=== PATIENT | female | born 1980 | race Caucasian/White ===

== ENCOUNTER → 2017-11-02 08:09 | Outpatient (CLI) | payer OTHER, SELFPAY ==
[2017-11-02 09:52] LABS: Free Thyroxine Index 2.8 ug/dL (5.93-13.13); T4 (Thyroxine) 8.9 ug/dl (4.7-13.3); Thyroid Stimulating Hormone 1.96 uIU/ml (0.358-3.740); Triiodothryronine (T3) Uptake 31 % (31-39)
[2017-11-03 18:41] LABS: Triiodothyronine (T3) Free 3.5 pg/mL (2.0-4.4)
[2017-11-08 21:09] LABS: Testosterone, Total, LC/MS 27.2 ng/dL (10.0-55.0)
== END ==
PROVIDERS: Visit Provider Nurse Practitioner Obstetrics & Gynecology
DX: N93.9 Abnormal uterine and vaginal bleeding, unspecified (principal); R53.82 Chronic fatigue, unspecified
CPT/HCPCS: 84402; 84403; 84436; 84443; 84479; 84481

== ENCOUNTER → 2017-11-05 12:53 | Outpatient (CLI) | payer OTHER, SELFPAY ==
--- NOTE | 2017-11-05 13:06 | US_ITS ---
US transvaginal HISTORY: ITS.REASON: HEAVY BLEEDING, heavy cycles, preablation ORDERING PHYSICIAN: Layo Cherry MD PATIENT AGE: 37 years Comparison: None FINDINGS: The uterus is 9 x 3.4 x 5.2 cm with a combined thickness of 8 mm. scar noted anteriorly. Nabothian cyst present at 5 mm. Left ovary is 2 x 2.5 cm. Blood flow present. Right ovary 3 x 2 cm containing a 1 cm cyst. Blood flow is present. No cul-de-sac fluid evident. IMPRESSION: As above, uterus is slightly bulky with endometrial thickness upper normal. 1 cm right ovarian cyst
== END ==
PROVIDERS: Family Provider Emergency Medicine; PCP Nurse Practitioner Family; Visit Provider Nurse Practitioner Obstetrics & Gynecology
DX: N93.9 Abnormal uterine and vaginal bleeding, unspecified (principal)
CPT/HCPCS: 76830

== ENCOUNTER → 2019-04-14 13:29 | Outpatient (CLI) | payer OTHER, SELFPAY ==
[2019-04-14 15:20] LABS: T4 (Thyroxine) 9.2 ug/dl (4.7-13.3); Thyroid Stimulating Hormone 1.89 uIU/ml (0.358-3.740)
[2019-04-16 16:24] LABS: Thyroid Peroxidase Antibodies 21 IU/mL (0-34)
[2019-04-18 08:17] LABS: Thyroid Stimulating Immunoglob <0.10 IU/L (0.00-0.55)
== END ==
PROVIDERS: Visit Provider Nurse Practitioner Family
DX: R41.3 Other amnesia (principal)
CPT/HCPCS: 84436; 84443; 84445; 86376

== ENCOUNTER → 2019-05-29 08:15 | Outpatient (CLI) | payer OTHER, SELFPAY ==
--- NOTE | 2019-05-29 08:18 | XR_ITS ---
PROCEDURE: XR ELBOW RT MIN 3V CLINICAL INDICATION: pain Elbow pain COMPARISON: No exams were available for comparison FINDINGS: No fracture or dislocation. No lytic or blastic change. There is normal mineralization. The joint spaces are well-preserved. No significant degenerative/arthritic changes. No erosive changes evident. Other findings:None. IMPRESSION: Negative elbow Dictated by: Hugo Bliss MD 05/29/2019 08:47 Electronically signed by Hugo Bliss MD in [place] 05/29/2019 08:47
== END ==
PROVIDERS: PCP Emergency Medicine; Visit Provider Emergency Medicine
DX: M25.521 Pain in right elbow (principal)
CPT/HCPCS: 73080

== ENCOUNTER 2019-09-01 15:00 | Outpatient (RCR) | payer OTHER, SELFPAY ==
--- NOTE | 2019-08-08 08:49 | HMH.OTOPEV ---
OT Inpatient Evaluation Rehab OT Outpatient Eval Start: 08/08/19 08:36 Freq: Status: Active Protocol: Document 08/08/19 08:36 RMMASOODHALL (Rec: 08/08/19 08:49 [id number] Electronically Signed By Roni Sullivan OT 08/08/19 08:36 Outpatient Therapy Subjective History Subjective History Pt is a 38 year old female who reports to therapy for initial evaluation to right elbow. Pt began having pain on the lateral epicondyle ~3 months ago. Pt does not recall a specific injury causing the pain to begin. Pt has seen ortho and received a steroid injection ~1 week ago . Since injection pt reports her pain is significantly improved with minimal soreness . Pt's AROM is within normal limits, strength is slightly declined. Pt will continue to be seen in order to increase functional use of right UE. Chief Complaint Pain,Weakness,Decreased Grants Analyst Strength Symptom Type Ache,Throb,Sharp,Dull,Burning Symptoms Relieved By Rest/Positioning Symptoms Aggravated By Physical Activity,Lifting Prior Functional Limitations None Current Functional Limitations Reaching,Lifting,Housework, Desk Work/Reading,Sleeping, Recreation Activity Symptom Description Intermittent,Activity Dependent Level of pain today (0-10) 0 Pain scale - at its best (0-10) 0 Pain scale - at its worst (0-10) 4 Shoulder/Elbow Eval Shoulder Objective Measurements Elbow Objective Measurements Elbow ROM Right full ROM elbow exam standard right decreased ROM elbow exam standard right pain with active ROM elbow exam standard right Elbow Extension Active Range of Motion ( 0 degrees degrees) Elbow Flexion Active Range of Motion ( 130 degrees degrees) Elbow Pronation of Forearm Range of 90 degrees Motion (degrees) Elbow Supination of Forearm Range of 90 degrees Motion (degrees) Elbow MMT Elbow Flexion Strength Grade 3+ Fair+ Elbow Extension Strength Grade 3+ Fair+ OT Outpatient Assessment Impairments Problems/Impairments Palpation Tenderness,Impaired Range of Motion,Impaired Strength,Impaired Endurance,
== END 2019-09-01 15:05 | disposition home or self-care (01) ==
LOC: OT 15:00
PROVIDERS: PCP Nurse Practitioner Family; Visit Provider Orthopaedic Surgery
DX: M77.11 Lateral epicondylitis, right elbow (principal)
CPT/HCPCS: 97014; 97110; 97140; 97166; G0283

== ENCOUNTER → 2019-11-20 16:42 | Outpatient (CLI) | payer OTHER, SELFPAY ==
[2019-11-20 17:42] LABS: Coronavirus 19 IgG Antibody Negative (Negative); Coronavirus 19 IgM Antibody Negative (Negative)
== END ==
PROVIDERS: Visit Provider Emergency Medicine
DX: Z03.818 Encounter for observation for suspected exposure to other biological agents ruled out (principal)
CPT/HCPCS: 86328

== ENCOUNTER → 2019-11-28 09:49 | Outpatient (CLI) | payer OTHER, SELFPAY ==
--- NOTE | 2019-11-28 09:49 | US_ITS ---
PROCEDURE: US ABDOMEN LIMITED CLINICAL INDICATION: Abdominal Pain Right-sided pain COMPARISON: No exams were available for comparison FINDINGS: PANCREAS: Pancreas is not well delineated due to overlying bowel gas. CT or MRI without and with contrast with pancreatic protocol may provide further evaluation if clinically desired. LIVER: No focal liver lesions demonstrated. Homogeneous echogenicity. No intrahepatic biliary ductal dilatation evident. There is appropriate direction of blood flow within a non dilated portal vein RIGHT KIDNEY: Unremarkable. Normal size and echogenicity. No hydronephrosis GALLBLADDER: No gallstones, gallbladder wall thickening, pericholecystic fluid, or biliary dilatation. IMPRESSION: 1. Unremarkable gallbladder ultrasound 2. Pancreas is not well delineated due to overlying bowel gas. CT or MRI without and with contrast with pancreatic protocol may provide further evaluation if clinically desired. Dictated by: Hugo Bliss MD 11/28/2019 15:51 Electronically signed by Hugo Bliss MD in [place] 11/28/2019 15:51
== END ==
PROVIDERS: PCP Nurse Practitioner Family; Visit Provider Emergency Medicine
DX: R10.9 Unspecified abdominal pain (principal)
CPT/HCPCS: 76705

== ENCOUNTER → 2020-01-09 08:54 | Outpatient (CLI) | payer OTHER, SELFPAY ==
--- NOTE | 2020-01-09 08:55 | MM_ITS ---
PROCEDURE: MM DIG SCREENING MAMM BI W/CAD Digital Breast Tomosynthesis Included CLINICAL INDICATION: SCREENING There is a history of breast cancer patient's paternal cousin. COMPARISON: This is baseline screening exam TECHNIQUE: Standard CC and MLO images and 3D Tomosynthesis was obtained. R2 CAD reviewed. FINDINGS: Mild to moderate diffuse fibroglandular densities are seen in both breasts. There is a questionable asymmetric density with slightly irregular borders highlighted by CAD on the MLO view only upper-outer quadrant right breast. Recommend the patient return for spot compression views and ultrasound if this proves to be a true lesion. There are no suspicious microcalcifications. IMPRESSION: Fibrofatty parenchyma with possible asymmetric density right breast versus summation shadow BI-RAD Category: 0 Need Additional Imaging Evaluation FOLLOW-UP: IMM Immediate Follow-up Recommended (A letter has been sent to the patient regarding results of the study.) Dictated by: Dr. Rogelio Dunn MD 01/12/2020 11:[address] Rogelio Dunn MD in [place] 01/12/2020 11:21
== END ==
PROVIDERS: PCP Nurse Practitioner Family; Visit Provider Emergency Medicine
DX: Z12.31 Encounter for screening mammogram for malignant neoplasm of breast (principal)
CPT/HCPCS: 77063; 77067

== ENCOUNTER → 2020-01-30 14:00 | Outpatient (CLI) | payer OTHER, SELFPAY ==
--- NOTE | 2020-01-30 14:00 | MM_ITS ---
PROCEDURE: MM DIG MAMM DX UNILAT RT CAD Digital Breast Tomosynthesis Included CLINICAL INDICATION: abn mamm, baseline exam COMPARISON: MG MM DIG SCREENING MAMM BI W/CAD from 01/09/2020 TECHNIQUE: 90 degree lateral view fresh in MLO views were obtained. The questionable asymmetric density appears to press out on the additional views and there is no persistent suspicious lesions seen. FINDINGS: The questionable asymmetric density highlighted by CAD on the baseline exam appears to press out on the additional views with no persistent or suspicious lesions seen. IMPRESSION: Negative problem solving views and recommend the patient continue with yearly screening mammography BI-RAD Category: 1 Negative FOLLOW-UP: 1YR 1 Year Follow-up (A letter has been sent to the patient regarding results of the study.) Dictated by: Dr. Rogelio Dunn MD 02/03/2020 08:42 Dr. Rogelio Dunn MD in [place] 02/03/2020 08:42
--- NOTE | 2020-01-30 14:00 | US_ITS ---
PROCEDURE: US BREAST RT COMPLETE CLINICAL INDICATION: abn mamm, baseline screening COMPARISON: No exams were available for comparison FINDINGS: Mildly heterogenic echogenicity is seen consistent with moderate diffuse fibroglandular densities. There is a small hypoechoic lesion 9 o'clock position near the nipple measuring point by 0.5 x 0.3 cm probably representing a small cyst. There is a normal appearing node in the axilla. IMPRESSION: Probable small benign-appearing cyst, no suspicious ultrasound findings and recommended patient continue yearly screening mammography. Dictated by: Dr. Rogelio Dunn MD 02/03/2020 08:44 Dr. Rogelio Dunn MD in [place] 02/03/2020 08:44
== END ==
PROVIDERS: PCP Nurse Practitioner Family; Visit Provider Nurse Practitioner Family
DX: R92.8 Other abnormal and inconclusive findings on diagnostic imaging of breast (principal)
CPT/HCPCS: 76641; 77061; 77065; G0279

== ENCOUNTER → 2020-02-08 11:14 | Outpatient (CLI) | payer OTHER, SELFPAY | PROVIDERS: PCP Emergency Medicine; Visit Provider Emergency Medicine | DX: Z20.828 Contact with and (suspected) exposure to other viral communicable diseases (principal); U07.1 COVID-19; R50.9 Fever, unspecified | CPT/HCPCS: U0003 ==

== ENCOUNTER → 2020-02-17 14:11 | Outpatient (CLI) | payer OTHER, SELFPAY | PROVIDERS: PCP Nurse Practitioner Family; Visit Provider Internal Medicine Adolescent Medicine | DX: Z20.828 Contact with and (suspected) exposure to other viral communicable diseases (principal); U07.1 COVID-19 | CPT/HCPCS: U0003 ==

== ENCOUNTER → 2020-04-15 15:42 | Outpatient (CLI) | payer OTHER, SELFPAY ==
--- NOTE | 2020-04-15 15:42 | MR_ITS ---
PROCEDURE: MR ELBOW RT WO CON CLINICAL INDICATION: right elbow pain RIGHT LATERAL EPICONDYLE PAIN X10 MONTHS, NO INJURY, CONSTANT PAIN PREVIOUS XRAY 05-29-19 COMPARISON: CR XR ELBOW RT MIN 3V from 05/29/2019 TECHNIQUE: Routine multiplanar multi echo sequences are performed without gadolinium enhancement. FINDINGS: There is increased T2 signal involving the common extensor tendon with a small amount fluid deep to the common extensor tendon consistent with lateral epicondylitis. There is slight increased T2 signal involving the proximal aspect of the radial collateral ligament and could be due to sprain or partial tear. The ulnar collateral ligaments appear intact as does the round ligament. The common flexor tendon has an unremarkable appearance. The triceps tendon, biceps tendon, and brachialis tendons also appear intact. No significant arthritic change. There is only a small amount fluid in the elbow joint. IMPRESSION: Findings are compatible with lateral epicondylitis Slight increased T2 signal of the radial collateral ligament proximally which could reflect sprain or partial tear. Dictated by: Hugo Bliss MD 04/19/2020 07:11 Hugo Bliss MD in [place] 04/19/2020 07:11
== END ==
PROVIDERS: PCP Nurse Practitioner Family; Visit Provider Emergency Medicine
DX: M25.521 Pain in right elbow (principal)
CPT/HCPCS: 73221

== ENCOUNTER 2020-04-30 15:00 | Outpatient (RCR) | payer OTHER, SELFPAY ==
--- NOTE | 2020-04-12 15:55 | HMH.OTOPEV ---
OT Inpatient Evaluation Rehab OT Outpatient Eval Start: 04/12/20 15:28 Freq: Status: Active Protocol: Document 04/12/20 15:28 RMSUREKHA (Rec: 04/12/20 15:54 [id number] Electronically Signed By Roni Sullivan OT 04/12/20 15:28 Outpatient Therapy Subjective History Subjective History Pt is a 39 year old female who reports to therapy for evaluation to right elbow. Pt was seen in August of 2019 for right lateral epicondylitis, but her symptoms improved and was discharged from therapy. Within the last 2 months, pt's symptoms have returned at the right elbow. Pt does not recall any specific incident causing the pain to return. Pt demonstrates with decreased strength, decreased cad technician strength, and constant pain. Pt is right hand dominant as well. Pt will continue to be seen twice a week in order to address all deficits. Chief Complaint Pain,Stiff,Weakness Symptom Type Ache,Throb,Dull Symptoms Relieved By Nothing Symptoms Aggravated By Physical Activity,Lifting Prior Functional Limitations None Current Functional Limitations Reaching,Lifting,Housework, Dressing,Desk Work/Reading, Driving,Sleeping,Recreation Activity Symptom Description Constant but Variable Level of pain today (0-10) 7 Pain scale - at its best (0-10) 4 Pain scale - at its worst (0-10) 10 Shoulder/Elbow Eval Shoulder Objective Measurements Elbow Objective Measurements Elbow ROM Right full ROM elbow exam standard left Elbow Extension Active Range of Motion ( 0-5 degrees degrees) Elbow Flexion Active Range of Motion ( 120 degrees degrees) Elbow Pronation of Forearm Range of 90 degrees Motion (degrees) Elbow Supination of Forearm Range of 90 degrees Motion (degrees) Elbow MMT Elbow Flexion Strength Grade 3 Fair Elbow Extension Strength Grade 3 Fair Wrist/Hand Eval Caregivers Non Medical/Pinch Strength Right Caregivers Non Medical Strength Measurement (lbs) 40 Left Caregivers Non Medical Strength Measurement (lbs) 60 OT Outpatient Assessment Impairments Problems/Impairments Palpation Tenderness,Impaired Range of Motion,Impaired
== END 2020-04-30 15:05 | disposition home or self-care (01) ==
LOC: OT 15:00
PROVIDERS: PCP Nurse Practitioner Family; Visit Provider Emergency Medicine
DX: M25.521 Pain in right elbow (principal)
CPT/HCPCS: 97014; 97033; 97035; 97140; 97165; G0283

== ENCOUNTER → 2020-11-23 15:18 | Outpatient (CLI) | payer OTHER, SELFPAY ==
[2020-11-23 15:26] LABS: Basophils % 0.7 % (0.1-2.0); Eosinophils # 0.1 K/mm3 (0.0-0.4); Eosinophils % 1.6 % (0.1-12.0); Hematocrit 41.6 % (37.0-47.0); Lymphocytes # 1.8 K/mm3 (0.7-4.5); Lymphocytes % 33.2 % (10-50); Mean Corpuscular HGB Conc 33.6 g/dL (31.8-35.4); Mean Corpuscular Volume 92.2 fl (81-99); Mean Platelet Volume 8.6 fl (7.4-10.4); Monocytes # 0.3 K/mm3 (0.1-1.0); Monocytes % 5.6 % (1.7-9.3); Neutrophils # 3.2 K/mm3 (1.8-7.8); Neutrophils % 58.9 % (37.0-80.0); Platelet Count 329 K/mm3 (142-424); Red Blood Count 4.51 M/mm3 (4.20-5.40); Red Cell Distribution Width 12.7 % (11.5-17.5); White Blood Count 5.5 K/mm3 (4.8-10.8)
[2020-11-23 15:31] LABS: Alanine Aminotransferase 27 U/L (12-78); Albumin Level 4.3 g/dl (3.5-5.0); Albumin/Globulin Ratio 1.7 (1.1-1.8); Alkaline Phosphatase 73 U/L (38-126); Anion Gap 9.5 mEq/L (5-15); Aspartate Amino Transferase 24 U/L (14-36); Bilirubin,Total 0.6 mg/dl (0.2-1.3); Blood Urea Nitrogen 11 mg/dl (7-17); Calcium 9.2 mg/dl (8.4-10.2); Carbon Dioxide 26 mmol/L (22.0-30.0); Chloride 108 mmol/L (98-107); Chol/HDL Ratio 3.8 (1-3.5); Cholesterol 201 mg/dl (140-200); Estimated Glomerular Filt Rate 79 ml/min (>60); GFR (African American) 96 ML/MIN (>60); Globulin 2.6 g/dL (1.3-3.2); Glucose 102 mg/dl (74-100); HDL Cholesterol 53 mg/dl (40-60); Potassium 4.5 mmoL/L (3.5-5.1); Sodium 139 mmol/L (136-145); Total Protein,Serum 6.9 g/dl (6.3-8.2); Triglycerides 77 mg/dl (30-150); VLDL Cholesterol 15 mg/dL (0-40)
[2020-11-23 15:42] LABS: Direct LDL Cholesterol 121.95 mg/dL (100-129)
[2020-11-23 16:02] LABS: Thyroid Stimulating Hormone 1.56 uIU/mL (0.465-4.68)
[2020-11-23 16:37] LABS: Vitamin B12 378 pg/mL (239-931)
[2020-11-23 16:40] LABS: Folate > 20.00 ng/mL
== END ==
PROVIDERS: Visit Provider Emergency Medicine
DX: G43.109 Migraine with aura, not intractable, without status migrainosus (principal); R63.5 Abnormal weight gain; Z72.820 Sleep deprivation; Z83.438 Family history of other disorder of lipoprotein metabolism and other lipidemia
CPT/HCPCS: 80053; 80061; 82607; 82746; 84443; 85025

== ENCOUNTER → 2020-12-02 08:02 | Outpatient (CLI) | payer OTHER, SELFPAY ==
--- NOTE | 2020-12-02 08:12 | XR_ITS ---
PROCEDURE: XR ELBOW RT MIN 3V CLINICAL INDICATION: right elbow pain COMPARISON: CR XR ELBOW RT MIN 3V from 05/29/2019 FINDINGS: No fracture or dislocation. No lytic or blastic change. There is normal mineralization. The joint spaces are well-preserved. No significant degenerative/arthritic changes. No erosive changes evident. Other findings:None. IMPRESSION: No acute findings. Dictated by: Diomedes Alicea MD 12/02/2020 08:42 Diomedes Alicea MD in [place] 12/02/2020 08:42
== END ==
PROVIDERS: PCP Nurse Practitioner Family; Visit Provider Orthopaedic Surgery Sports Medicine
DX: M77.11 Lateral epicondylitis, right elbow (principal)
CPT/HCPCS: 73080

== ENCOUNTER → 2020-12-21 12:26 | Outpatient (CLI) | payer OTHER, SELFPAY ==
[2020-12-22 19:10] LABS: H. pylori Breath Test Negative (Negative)
== END ==
PROVIDERS: Visit Provider Nurse Practitioner Family
DX: R10.9 Unspecified abdominal pain (principal)
CPT/HCPCS: 83013

== ENCOUNTER → 2021-02-18 09:35 | Outpatient (CLI) | payer OTHER, SELFPAY ==
--- NOTE | 2021-02-18 09:35 | MM_ITS ---
PROCEDURE: MM DIG SCREENING MAMM BI W/CAD Digital Breast Tomosynthesis Included CLINICAL INDICATION: screening COMPARISON: MG MM DIG SCREENING MAMM BI W/CAD from 01/09/2020 MG MM DIG MAMM DX UNILAT RT CAD from 01/30/2020 US US BREAST RT COMPLETE from 01/30/2020 TECHNIQUE: Standard CC and MLO images and 3D Tomosynthesis was obtained. R2 CAD reviewed. FINDINGS: The breasts are heterogeneously dense which may obscure small masses. There is an asymmetric density in the lateral aspect of the right breast slightly to the lateral of center as seen on the right CC missael. Focal spot compression views and rolled views suggested. This may only represent an asymmetric area of tissue not readily identified on the mL 0 view. Straight mL view also recommended. Also suggest right breast ultrasound. On the MLO view there is a asymmetric density in the posterior 1/3 of the right breast centrally for which focal spot compression views and ultrasound is suggested. Asymmetry also noted in the superior and anterior aspect of the left breast for which spot compression views and straight mL and ultrasound is suggested. These areas may only represent overlapping fibroglandular tissue. IMPRESSION: Asymmetric densities bilaterally. Suggest spot compression views, straight mL views, rolled views and bilateral breast ultrasound BI-RAD Category: 0 Need Additional Imaging Evaluation FOLLOW-UP: IMM Immediate Follow-up Recommended (A letter has been sent to the patient regarding results of the study.) Dictated by: Hugo Bliss MD 02/28/2021 08:59 Hugo Bliss MD in [place] 02/28/2021 08:59
== END ==
PROVIDERS: PCP Nurse Practitioner Family; Visit Provider Nurse Practitioner Family
DX: Z12.31 Encounter for screening mammogram for malignant neoplasm of breast (principal)
CPT/HCPCS: 77063; 77067

== ENCOUNTER → 2021-03-04 13:35 | Outpatient (CLI) | payer OTHER, SELFPAY ==
--- NOTE | 2021-03-04 13:35 | MM_ITS ---
PROCEDURE: MM DIG MAMM BI DX W/CAD Digital Breast Tomosynthesis Included US US BREAST LT COMPLETE US US BREAST RT COMPLETE CLINICAL INDICATION: abn mamm COMPARISON: MG MM DIG SCREENING MAMM BI W/CAD from 01/09/2020 MG MM DIG MAMM DX UNILAT RT CAD from 01/30/2020 US US BREAST RT COMPLETE from 01/30/2020 MG MM DIG SCREENING MAMM BI W/CAD from 02/18/2021 TECHNIQUE: Bilateral breast ultrasound and bilateral problem mammographic solving views. FINDINGS: Right breast: No suspicious abnormalities evident. No malignant appearing mass or malignant-appearing microcalcification. No discrete nodule evident in the area of concern on the screening mammogram. Right breast ultrasound: 3 mm cyst 12 o'clock nipple. 5 mm cyst at 9 o'clock near the nipple. No suspicious abnormality apparent. Left breast: Asymmetric densities in the superior and inferior aspect of the left breast appear to compress out as fibroglandular tissue. Left breast ultrasound:. Small complicated cyst 6 x 4 mm at 6 o'clock IMPRESSION: No convincing evidence of malignancy. Probably benign findings. Recommend bilateral 6 month mammographic and sonographic follow-up. BI-RAD Category: 3 Probably Benign Finding Short Term Follow-Up FOLLOW-UP: 6M 6 Month Follow-up (A letter has been sent to the patient regarding results of the study.) Dictated by: Hugo Bliss MD 03/11/2021 10:23 Hugo Bliss MD in [place] 03/11/2021 10:23
== END ==
PROVIDERS: PCP Nurse Practitioner Family; Visit Provider Nurse Practitioner Family
DX: R92.8 Other abnormal and inconclusive findings on diagnostic imaging of breast (principal)
CPT/HCPCS: 77062; 77066; G0279

== ENCOUNTER → 2021-03-11 08:15 | Outpatient (CLI) | payer OTHER, SELFPAY ==
--- NOTE | 2021-03-11 08:16 | US_ITS ---
PROCEDURE: MM DIG MAMM BI DX W/CAD Digital Breast Tomosynthesis Included US US BREAST LT COMPLETE US US BREAST RT COMPLETE CLINICAL INDICATION: abn mamm COMPARISON: MG MM DIG SCREENING MAMM BI W/CAD from 01/09/2020 MG MM DIG MAMM DX UNILAT RT CAD from 01/30/2020 US US BREAST RT COMPLETE from 01/30/2020 MG MM DIG SCREENING MAMM BI W/CAD from 02/18/2021 TECHNIQUE: Bilateral breast ultrasound and bilateral problem mammographic solving views. FINDINGS: Right breast: No suspicious abnormalities evident. No malignant appearing mass or malignant-appearing microcalcification. No discrete nodule evident in the area of concern on the screening mammogram. Right breast ultrasound: 3 mm cyst 12 o'clock nipple. 5 mm cyst at 9 o'clock near the nipple. No suspicious abnormality apparent. Left breast: Asymmetric densities in the superior and inferior aspect of the left breast appear to compress out as fibroglandular tissue. Left breast ultrasound:. Small complicated cyst 6 x 4 mm at 6 o'clock. No suspicious lesions evident IMPRESSION: No convincing evidence of malignancy. Probably benign findings. Recommend bilateral 6 month mammographic and sonographic follow-up. BI-RAD Category: 3 Probably Benign Finding Short Term Follow-Up FOLLOW-UP: 6M 6 Month Follow-up (A letter has been sent to the patient regarding results of the study.) Dictated by: Hugo Bliss MD 03/11/2021 10:24 Hugo Bliss MD in [place] 03/11/2021 10:24
== END ==
PROVIDERS: PCP Nurse Practitioner Family; Visit Provider Nurse Practitioner Family
DX: R92.8 Other abnormal and inconclusive findings on diagnostic imaging of breast (principal)
CPT/HCPCS: 76641

== ENCOUNTER → 2021-04-12 17:01 | Outpatient (CLI) | payer OTHER, SELFPAY ==
--- NOTE | 2021-04-12 17:05 | MR_ITS ---
PROCEDURE INFORMATION: Exam: MR Right Upper Extremity Joint Without Contrast; Elbow Exam date and time: 04/12/2021 5:05 PM Age: 40 years old Clinical indication: Pain; Elbow; Right; Additional info: Right elbow pain. Radial sided elbow pain x2yrs. Constant pain worse with extension and lifting. Prior MR 04-15-20 TECHNIQUE: Imaging protocol: MR of the Right upper extremity without contrast. Exam focused on the elbow. COMPARISON: MR ELBOW RT WO CON 04/15/2020 3:51 PM FINDINGS: Bones and cartilage: See Common extensor tendon finding. Joint spaces: No joint effusion. Ulnar (medial) collateral ligament: Unremarkable. No tear. Radial collateral ligament of the elbow: Increasing indistinctness to proximal fibers of the radial collateral ligament consistent with progression in a probable partial tear here. Annular ligament of the radius: Unremarkable. No tear. Tendon of the biceps brachii: Unremarkable. No tear. Tendon of the brachialis: Unremarkable. No tear. Triceps tendon: Unremarkable. No tear. Common flexor tendon: Unremarkable. No tear. Common extensor tendon: There is fluid signal in and deep to the common extensor origin consistent with lateral epicondylitis and some degeneration and partial tearing of the origin. This is progressed since the comparison 2019 study. There is no retraction or marrow edema. Muscles: Unremarkable. Soft tissues: Unremarkable. IMPRESSION: 1. There is fluid signal in and deep to the common extensor origin consistent with lateral epicondylitis and some degeneration and partial tearing of the origin. This is progressed since the comparison 2019 study. There is no retraction or marrow edema. 2. Increasing indistinctness to proximal fibers of the radial collateral ligament consistent with progression in a probable partial tear here.
== END ==
PROVIDERS: PCP Nurse Practitioner Family; Visit Provider Orthopaedic Surgery
DX: M25.521 Pain in right elbow (principal)
CPT/HCPCS: 73221

== ENCOUNTER → 2021-05-16 08:08 | Outpatient (CLI) | payer OTHER, SELFPAY ==
[2021-05-16 09:01] LABS: Basophils # 0.1 K/mm3 (0-0.2); Basophils % 1.3 % (0.1-2.0); Eosinophils # 0.1 K/mm3 (0.0-0.4); Eosinophils % 1.7 % (0.1-12.0); Hematocrit 45.7 % (37.0-47.0); Hemoglobin 15.6 g/dL (12.2-16.2); Lymphocytes # 1.9 K/mm3 (0.7-4.5); Mean Corpuscular HGB Conc 34.1 g/dL (31.8-35.4); Mean Corpuscular Hemoglobin 31.8 pg (27.0-31.2); Mean Corpuscular Volume 93.3 fl (81-99); Mean Platelet Volume 7.4 fl (7.4-10.4); Monocytes # 0.2 K/mm3 (0.1-1.0); Monocytes % 3.9 % (1.7-9.3); Neutrophils # 3.7 K/mm3 (1.8-7.8); Neutrophils % 61.1 % (37.0-80.0); Platelet Count 394 K/mm3 (142-424); Red Cell Distribution Width 12.6 % (11.5-17.5)
[2021-05-16 09:10] LABS: Activated Partial Thrombo Time 26.1 seconds (22.8-30.6); INR 0.92 (0.9-1.1); Prothrombin Time 10.5 seconds (10.1-12.5)
[2021-05-16 09:37] LABS: Chloride 104 mmol/L (98-107); Sodium 140 mmol/L (136-145)
[2021-05-16 09:38] LABS: Potassium 4.3 mmoL/L (3.5-5.1)
[2021-05-16 09:40] LABS: Alanine Aminotransferase 49 U/L (12-78); Albumin Level 4.6 g/dl (3.5-5.0); Alkaline Phosphatase 74 U/L (38-126); Anion Gap 13.3 mEq/L (5-15); Aspartate Amino Transferase 46 U/L (14-36); Bilirubin,Total 0.3 mg/dl (0.2-1.3); Blood Urea Nitrogen 12 mg/dl (7-17); Carbon Dioxide 27 mmol/L (22.0-30.0); Estimated Glomerular Filt Rate 79 ml/min (>60); GFR (African American) 96 ML/MIN (>60)
[2021-05-16 09:41] LABS: Albumin/Globulin Ratio 1.8 (1.1-1.8); Calcium 10.4 mg/dl (8.4-10.2); Globulin 2.6 g/dL (1.3-3.2); Glucose 98 mg/dl (74-100); Total Protein,Serum 7.2 g/dl (6.3-8.2)
== END ==
PROVIDERS: Visit Provider Orthopaedic Surgery
DX: R07.9 Chest pain, unspecified (principal); R79.9 Abnormal finding of blood chemistry, unspecified
CPT/HCPCS: 36415; 80053; 83036; 85025; 85610; 85730

== ENCOUNTER → 2021-05-17 18:39 | Outpatient (CLI) | payer OTHER, SELFPAY | PROVIDERS: Visit Provider Emergency Medicine | DX: Z20.822 Contact with and (suspected) exposure to COVID-19 (principal) | CPT/HCPCS: C9803; U0003; U0005 ==

== ENCOUNTER 2021-05-27 15:35 | Outpatient (RCR) | payer OTHER, SELFPAY | END 2021-05-27 16:24 | disposition home or self-care (01) | LOC: OT 15:35 | PROVIDERS: Visit Provider Emergency Medicine | DX: M25.531 Pain in right wrist (principal) | CPT/HCPCS: 97763 ==

== ENCOUNTER 2021-07-19 09:00 | Outpatient (RCR) | payer OTHER, SELFPAY | END 2021-07-19 09:05 | disposition home or self-care (01) | LOC: OT 09:00 | PROVIDERS: PCP Nurse Practitioner Family; Visit Provider Family Medicine | DX: M77.11 Lateral epicondylitis, right elbow (principal); Z98.890 Other specified postprocedural states | CPT/HCPCS: 97010; 97014; 97035; 97110; 97140; 97164; 97166; G0283 ==

== ENCOUNTER → 2021-09-09 13:42 | Outpatient (CLI) | payer OTHER, SELFPAY ==
--- NOTE | 2021-09-09 13:42 | MM_ITS ---
PROCEDURE INFORMATION: Exam: US Right Breast, Complete US Left Breast, Complete MG Bilateral Diagnostic Breast Tomosynthesis Exam date and time: 09/09/2021 2:40 PM Age: 41 years old Clinical indication: Six-month follow-up for possible asymmetries in the superior inferior left breast and bilateral cysts, from February 2021. TECHNIQUE: Imaging protocol: Complete ultrasound of all four quadrants of the Right breast and the retroareolar regions, including ultrasound of the axilla when performed. Complete ultrasound of all four quadrants of the Left breast and the retroareolar regions, including ultrasound of the axilla when performed. Bilateral Diagnostic tomosynthesis and 2D mammography including computer-aided detection (CAD) when performed. Unilateral or bilateral exam. COMPARISON: 1. MG MM DIG MAMM BI DX W/CAD 03/04/2021 1:47 PM 2. MG MM DIG SCREENING MAMM BI W/CAD 02/18/2021 9:47 AM 3. MG MM DIG MAMM DX UNILAT RT CAD 01/30/2020 2:01 PM 4. MG MM DIG SCREENING MAMM BI W/CAD 01/09/2020 9:12 AM 5. US BREAST RT COMPLETE 03/11/2021 8:39 AM 6. US BREAST RT COMPLETE 01/30/2020 2:26 PM 7. US BREAST LT COMPLETE 03/11/2021 8:49 AM FINDINGS: MAMMOGRAPHY: Breast composition: The breast tissue is heterogeneously dense, which may obscure small masses. Mass: None. Architectural distortion: None. Calcifications: No suspicious calcifications. Asymmetric density: No developing asymmetry. Skin thickening: None. Axillary adenopathy: None. ULTRASOUND: Bilateral sonography, all 4 quadrants, retroareolar and axilla. On the right, benign-appearing sub cm cysts again noted in the upper breast measuring 0.4 x 0.4 x 0.2 cm, which measured 0.3 x 0.2 cm on 03/11/2021, and at 9 o'clock 3 cm from the nipple measuring 0.5 x 0.3 x 0.5 cm, which measured 0.5 by 0.5 x 0.3 cm on 03/11/2021. No suspicious cystic or solid masses demonstrated. Sonographically unremarkable right axillary node. On the left, probably benign benign mildly complicated cysts, at 12 o'clock 3 cm from the nipple measuring 0.4 x 0.5 x 0.3 cm, at 2 o'clock 4 cm from the nipple measuring 0.3 by 0.3 x 0.2 cm, and at 4 o'clock 3 cm from nipple measuring 0.4 x 0.2 x 0.4 cm. The previously reported cyst at 6 o'clock is not demonstrated. No suspicious cystic or solid masses demonstrated. Sonographically unremarkable left axillary node. IMPRESSION: Probably benign cysts, stable on the right with several new sub cm cysts demonstrated on the left. Suggest six-month follow-up bilateral breast ultrasound, on the right in the upper breast and at 9 o'clock, and on the left at 12 o'clock, 2 o'clock, and 4 o'clock, unless otherwise clinically indicated. ASSESSMENT: BI-RADS Category 3: Probably benign
== END ==
PROVIDERS: PCP Emergency Medicine; Visit Provider Nurse Practitioner Family
DX: R92.8 Other abnormal and inconclusive findings on diagnostic imaging of breast (principal)
CPT/HCPCS: 76641; 77062; 77066; G0279

== ENCOUNTER → 2021-10-26 11:03 | Outpatient (CLI) | payer OTHER, SELFPAY ==
[2021-10-26 12:13] LABS: Amphetamine/Metha Screen,Urine Positive ng/ml (<1000)
[2021-10-26 12:14] LABS: Barbiturates Screen,Urine Positive ng/ml (<200); Benzodiazepines Screen,Urine Negative ng/ml (<200)
[2021-10-26 12:15] LABS: Cannabinoid Screen,Urine Negative ng/ml (<50); Cocaine Screen,Urine Negative ng/ml (<300)
[2021-10-26 12:16] LABS: Methadone Screen,Urine Negative ng/ml (<300)
[2021-10-26 12:17] LABS: Opiate Screen,Urine Negative ng/ml (<300)
[2021-10-26 12:18] LABS: Phencyclidine Screen,Urine Negative ng/ml (<25)
== END ==
PROVIDERS: Visit Provider Nurse Practitioner Psychiatric/Mental Health
DX: Z02.83 Encounter for blood-alcohol and blood-drug test (principal)
CPT/HCPCS: 80305

== ENCOUNTER → 2021-11-01 08:03 | Outpatient (POV) | payer OTHER, SELFPAY | PROVIDERS: Visit Provider Dermatology | DX: Z00.00 Encounter for general adult medical examination without abnormal findings (principal) ==

== ENCOUNTER → 2022-03-07 09:35 | Outpatient (CLI) | payer OTHER, SELFPAY ==
--- NOTE | 2022-03-07 09:35 | MR_ITS ---
FINAL REPORT CLINICAL HISTORY: unilateral hearing loss LEFT SIDED HEARING LOSS 15 ML PROHANCE GIVEN FINDINGS: Multiplanar MR imaging of the brain was performed without and with contrast. There is no evidence of intracranial hemorrhage or mass. No abnormal extra-axial fluid collection is seen. The ventricular size is within normal limits. There is no evidence of shift of the midline structures. The posterior fossa and brainstem have an unremarkable appearance. No area of abnormal restricted diffusion is identified. No abnormal contrast enhancement is seen. The 7th and 8th nerve root complexes are symmetric. Normal major vessel vascular flow voids are noted. IMPRESSION: No acute intracranial abnormality identified. Reviewed, Interpreted and Dictated by Enrike Bowers MD Transcribed by Lino Mason Authenticated and [facility]
== END ==
PROVIDERS: PCP Emergency Medicine; Visit Provider Otolaryngology
DX: H90.5 Unspecified sensorineural hearing loss (principal)
CPT/HCPCS: 70553; A9576

== ENCOUNTER → 2022-03-24 14:01 | Outpatient (CLI) | payer OTHER, SELFPAY ==
--- NOTE | 2022-03-24 14:01 | US_ITS ---
PROCEDURE INFORMATION: Exam: US Right Breast, Complete Exam date and time: 03/24/2022 2:51 PM Age: 41 years old Clinical indication: Six-month follow-up for probably benign bilateral cystic changes. TECHNIQUE: Imaging protocol: Complete ultrasound of all four quadrants of the Right breast and the retroareolar regions, including ultrasound of the axilla when performed. COMPARISON: US BREAST RT COMPLETE 09/09/2021 2:40 PM FINDINGS: Breast: On the right, benign-appearing sub cm cysts at 12 o'clock 3 cm from the nipple measuring 0.3 by 0.4 x 0.3 cm (which appears to correspond to the finding annotated in the upper breast and measuring 0.4 x 0.4 x 0.2 cm on 09/09/2021 and which measured 0.3 x 0.2 cm on 03/11/2021) and two at 9 o'clock 3 cm from the nipple measuring 0.6 x 0.3 by 0.5 cm and 0.5 by 0.6 x 0.3 cm (one measured 0.5 x 0.3 x 0.5 cm on 09/09/2021 and which measured 0.5 by 0.5 x 0.3 cm on 03/11/2021. At 10 o'clock 4 cm from the nipple, probable complicated cluster of cysts measuring 0.6 by 0.9 x 0.4 cm, new or newly documented. Scattered sub cm simple cysts as well. Sonographically unremarkable right axillary node. IMPRESSION: Suggest six-month follow-up for new or newly documented 0.9 cm probable complicated cluster of cysts at 10 o'clock when patient returns for screening mammogram August 2022, unless otherwise clinically indicated. Otherwise stable benign-appearing cystic change. ASSESSMENT: BI-RADS Category 3: Probably benign
--- NOTE | 2022-03-24 14:01 | US_ITS ---
PROCEDURE INFORMATION: Exam: US Left Breast, Complete Exam date and time: 03/24/2022 2:39 PM Age: 41 years old Clinical indication: Six-month follow-up for probably benign bilateral cystic changes. TECHNIQUE: Imaging protocol: Complete ultrasound of all four quadrants of the Left breast and the retroareolar regions, including ultrasound of the axilla when performed. COMPARISON: US BREAST LT COMPLETE 09/09/2021 2:56 PM FINDINGS: Breast: On the left, probably benign benign mildly complicated cysts, at 12 o'clock 3 cm from the nipple measuring 0.4 x 0.4 x 0.3 cm (measured 0.4 x 0.5 x 0.3 cm on 09/09/2021), at 2 o'clock 4 cm from the nipple measuring 0.4 x 0.3 cm and 0.3 x 0.3 cm (one measured 0.3 by 0.3 x 0.2 cm on 09/09/2021), and at 4 o'clock 3 cm from nipple measuring 0.5 by 0.5 x 0.2 cm (which measured 0.4 x 0.2 x 0.4 cm on 09/09/2021). A mildly complicated cyst is noted at 1 o'clock 6 cm from nipple measuring 0.9 by 0.8 x 0.3, which is new or newly documented. Sonographically unremarkable left axillary node. IMPRESSION: Probably benign cystic changes, suggest adding screening sonography when the patient returns for screening mammography in August 2022, unless otherwise clinically indicated. Right sonography is dictated separately. ASSESSMENT: BI-RADS Category 3: Probably benign
== END ==
PROVIDERS: PCP Emergency Medicine; Visit Provider Emergency Medicine
DX: R92.8 Other abnormal and inconclusive findings on diagnostic imaging of breast (principal)
CPT/HCPCS: 76641

== ENCOUNTER → 2022-04-26 07:31 | Outpatient (CLI) | payer OTHER, SELFPAY ==
--- NOTE | 2022-04-26 07:32 | MR_ITS ---
FINAL REPORT CLINICAL HISTORY: Head/neck pain migraine headaches, neck pain. FINDINGS: Multi planar MR imaging was obtained of the cervical spine. There is mild decreased signal throughout the cervical discs. The vertebrae are of normal height. There is no malalignment. The cervical cord demonstrates normal signal and configuration. C2-C3: There is no evidence of significant disc bulge or protrusion. There is no significant facet hypertrophy. C3-C4: There is no evidence of significant disc bulge or protrusion. There is no significant facet hypertrophy. C4-C5: There is no evidence of significant disc bulge or protrusion. There is no significant facet hypertrophy. C5-C6: There is no evidence of significant disc bulge or protrusion. There is no significant facet hypertrophy. C6-C7: There is no evidence of significant disc bulge or protrusion. There is no significant facet hypertrophy. C7-T1: There is no evidence of significant disc bulge or protrusion. There is no significant facet hypertrophy. IMPRESSION: Mild diffuse degenerative disc disease. No focal disc bulge or protrusion. Reviewed, Interpreted and Dictated by Enrike Bowers MD Transcribed by Lino Mason Authenticated and [facility]
== END ==
PROVIDERS: PCP Emergency Medicine; Visit Provider Emergency Medicine
DX: R51.9 Headache, unspecified (principal); M54.2 Cervicalgia
CPT/HCPCS: 72141; 76376

== ENCOUNTER → 2022-11-24 12:55 | Outpatient (CLI) | payer OTHER, SELFPAY ==
--- NOTE | 2022-11-24 12:56 | US_ITS ---
PROCEDURE INFORMATION: Exam: US Right Breast, Complete US Left Breast, Complete MG Bilateral Screening 3D Mammography Exam date and time: 11/24/2022 12:47 PM Age: 42 years old Clinical indication: Screening examination TECHNIQUE: Imaging protocol: Complete ultrasound of all four quadrants of the right breast and the retroareolar regions, including ultrasound of the axilla when performed. Complete ultrasound of all four quadrants of the left breast and the retroareolar regions, including ultrasound of the axilla when performed. Bilateral Screening tomosynthesis and 2D mammography including computer-aided detection (CAD) when performed. COMPARISON: 1. MG MM DIG MAMM BI DX W/CAD 09/09/2021 1:55 PM 2. MG MM DIG MAMM BI DX W/CAD 03/04/2021 1:47 PM FINDINGS: MAMMOGRAPHY: Breast composition: There are scattered areas of fibroglandular density. Mass: None. Architectural distortion: None. Calcifications: None. Asymmetric density: None. Skin thickening: None. Axillary adenopathy: None. ULTRASOUND: Right solid masses: None. Right cystic masses: Minimal subcentimeter cystic change is present in the right breast. Right architectural distortion: None. Right acoustical shadowing: None. Right skin thickening: None. Right axillary adenopathy: None. Left solid masses: None. Left cystic masses: Minimal subcentimeter cystic change is present in the left breastLeft architectural distortion: None. Left acoustical shadowing: None. Left skin thickening: None. Left axillary adenopathy: None. IMPRESSION: No mammographic or sonographic evidence of malignancy. Annual screening is recommended unless otherwise clinically indicated. ASSESSMENT: BI-RADS Category 2: Benign
== END ==
PROVIDERS: PCP Emergency Medicine; Visit Provider Emergency Medicine
DX: Z12.31 Encounter for screening mammogram for malignant neoplasm of breast (principal); R92.8 Other abnormal and inconclusive findings on diagnostic imaging of breast
CPT/HCPCS: 76641; 77063; 77067

== ENCOUNTER 2023-11-27 13:49 | Outpatient (CLI) | payer OTHER, SELFPAY ==
--- NOTE | 2023-11-27 13:50 | US_ITS ---
PROCEDURE INFORMATION: Exam: US Right Breast, Complete, Screening US Left Breast, Complete, Screening MG Bilateral Screening 3D Mammography Exam date and time: 11/27/2023 1:43 PM Age: 43 years old Clinical indication: Screening examination; Family history of breast cancer TECHNIQUE: Imaging protocol: Complete ultrasound of all four quadrants of the right breast and the retroareolar regions, including ultrasound of the axilla when performed. Complete ultrasound of all four quadrants of the left breast and the retroareolar regions, including ultrasound of the axilla when performed. Bilateral Screening tomosynthesis and 2D mammography including computer-aided detection (CAD) when performed. COMPARISON: 1. MG MM DIG SCREENING MAMM BI W/CAD 11/24/2022 12:47 PM 2. MG MM DIG MAMM BI DX W/CAD 09/09/2021 1:55 PM FINDINGS: MAMMOGRAPHY: Breast composition: The breasts are heterogeneously dense, which may obscure small masses. Mass: None. Architectural distortion: None. Calcifications: None. Asymmetric density: None. Skin thickening: None. Axillary adenopathy: None. ULTRASOUND: Right solid masses: None. Right cystic masses: None. Right architectural distortion: None. Right acoustical shadowing: None. Right skin thickening: None. Right axillary adenopathy: None. Left solid masses: None. Left cystic masses: Minimal subcentimeter cystic change is present in the left breast. Left architectural distortion: None. Left acoustical shadowing: None. Left skin thickening: None. Left axillary adenopathy: None. IMPRESSION: No mammographic or sonographic evidence of malignancy. Annual screening is recommended unless otherwise clinically indicated. ASSESSMENT: BI-RADS Category 2: Benign.
== END 2023-11-27 23:59 | disposition home or self-care (01) ==
LOC: RAD 13:50
PROVIDERS: PCP Family Medicine; Visit Provider Family Medicine
DX: Z12.31 Encounter for screening mammogram for malignant neoplasm of breast (principal); Z80.3 Family history of malignant neoplasm of breast
CPT/HCPCS: 76641; 77063; 77067

== ENCOUNTER 2025-04-01 12:56 | Outpatient (CLI) | payer BC, SELFPAY ==
--- NOTE | 2025-04-01 13:00 | MM_ITS ---
PROCEDURE INFORMATION: Exam: US Right Breast, Complete US Left Breast, Complete MG Bilateral Screening 3D Mammography Exam date and time: 04/01/2025 1:06 PM Age: 44 years old Clinical indication: Screening exam. No personal or family history of breast cancer. TECHNIQUE: Imaging protocol: Complete ultrasound of all four quadrants of the right breast and the retroareolar regions, including ultrasound of the axilla when performed. Complete ultrasound of all four quadrants of the left breast and the retroareolar regions, including ultrasound of the axilla when performed. Bilateral Screening tomosynthesis and 2D mammography including computer-aided detection (CAD) when performed. COMPARISON: 1. US BREAST BILAT COMPLETE 11/27/2023 2:46 PM 2. Screening mammogram 11/27/2023. FINDINGS: MAMMOGRAPHY: Breast composition: The breasts are heterogeneously dense, which may obscure small masses. Mass: No suspicious masses. Architectural distortion: None. Calcifications: No suspicious calcification. Asymmetric density: None. Skin thickening: None. Axillary adenopathy: None. ULTRASOUND: Right solid masses: None. Right cystic masses: Benign clustered microcysts at 9 o'clock measuring 0.5 cm in aggregate. Right architectural distortion: None. Right acoustical shadowing: None. Right skin thickening: None. Right axillary adenopathy: None. Left solid masses: None. Left cystic masses: Scattered subcentimeter benign simple cysts. Left architectural distortion: None. Left acoustical shadowing: None. Left skin thickening: None. Left axillary adenopathy: None. IMPRESSION: No mammographic or sonographic evidence of malignancy. Annual screening is recommended unless otherwise clinically indicated. ASSESSMENT: BI-RADS Category 2: Benign.
--- OUTSIDE RECORDS SUMMARY | 2025-04-01 13:00 | XMS_ITS | Data Portability ---
Author Organization [facility] [place] [facility] Address [address] [place] [address] Assessment No assessment recorded. Plan of Treatment Reminders Order Date Submit Date Provider Last Modified By Organization Details Last Modified Time Details Appointments None record ed. Lab None record ed. Referral None record ed. Procedures None record ed. Surgeries None record ed. Imaging None record ed. Medication Orders None record ed. Patient TargetsNo targets recorded. Patient InstructionsNo instructions recorded. Reason for Referral None Reported. Results Created Date Observation Date Name Description Value Unit Range Abnormal Flag Note LastModifiedBy Organization Detail LastModifiedTime 01/06/20 22 01/05/2022 audio gram No observ ation record ed. BARCODE Not Available 2021 12:12:56 03/07/20 22 03/07/2022 imagi ng/bebe marsh tic resul t No observ ation record ed. [place] [id number], [place], [address], 03/22/2022 00:41:57 Result Notes None recorded. Procedures Surgical History Date Name Laterality Status Provider Name and Address Organization Details Recorded Time 2 Tympanogram completed YANET LANIER [address] [place], [address], [facility] 01/05/2022 11:14:33 2 Audiogram completed YANET LANIER [address] [place], [address], [facility] 01/05/2022 11:14:31 Imaging Results None recorded. Procedure Notes None recorded. Medical Equipment None Reported. Medications Name Sig Start Date Stop Date Status Note LastModified by Organization Details LastModified Time celecoxib 200 mg capsule active Not Available Not Available Not Available hydrocodone 5 mg-acetaminophen 325 mg tablet active Not Available Not Availabl e Not Available ondansetron HCl 4 mg tablet active Not Available Not Available No t Available pseudoephedrine ER 120 mg tablet,extended release active Not Available Not Available Not Available omeprazole 40 mg capsule,delayed release active Not Available Not Available Not Available butalbital-acetam inophen-caffeine 50 mg-325 mg-40 mg tablet active Not Available Not Available No t Available Adderall XR 20 mg capsule,extended release active Not Available Not Available Not Available Adderall XR 30 mg capsule,extended release active Not Available Not Available Not Available propranolol 40 mg tablet active Not Available Not Available Not Available cephalexin 500 mg capsule active Not Available Not Available Not Available scopolamine 1 mg over 3 days transdermal patch active Not Available Not Avai lable Not Available Vyvanse 30 mg capsule active Not Available Not Available Not Available methylphenidate ER 10 mg capsule,extended release (40-60) sprinkle active Not Available Not Available Not Available Mydayis 25 mg capsule extended release 24 hr active Not Available Not Availabl e Not Available Ajovy Syringe 225 mg/1.5 mL subcutaneous active Not Available Not Available Not Available Ubrelvy 100 mg tablet active Not Available Not Available Not Available Ajovy 225 mg/1.5 mL subcutaneous auto-injector active Not Available Not Availabl e Not Available Lastacaft Once Daily Relief 0.25 % eye drops active Not Available Not Available Not Available Vitals None Recorded Social History None recorded. Functional Status None recorded. Mental Status None recorded. Family History Nothing Reported. Medical History No medical history recorded. Gynecological HistoryNo gynecological history recorded. Obstetrics History GPAL:G 0 P 0 0 0 0 Past Encounters Encounter ID Performer Location Encounter Start Date Encounter Closed Date Diagnosis/Indication Diagnosis SNOMED-CT Code Diagnosis ICD10 Code Diagnosis IMO Codes Diagnosis Note [id number] YANET LANIER ENT [facility] [address] [place] [address] 01/05/2022 09:51:09 01/05/2022 11:16:03 Sensorineural hearing loss in left ear [id number] 9109 H90.42 Health Concerns Section Related Observation LastModified by Organization Detai ls LastModified Time None Recorded Concern Status LastModified by Organization Details LastModified Time None Recorded Advance Directives Directive None Recorded Payers Insurance Date Sequence Insurance Name Policy Number Policy Prince Covered Member ID Prince Member ID Guarantor Name 01/05/2022 1 [employer]) [id number] Padmini Mack [id number] Padmini Mack OBGyn Episode No OBEpisode recorded.
--- OUTSIDE RECORDS SUMMARY | 2025-04-01 13:00 | XMS_ITS | Clinical Summary ---
Author Organization [facility] Address [address] [place] [address] Care Team Providers Care Doctor Of Dental Surgery Name Role Phone Provider, No Known Primary Care Provider [phone] Allergies Active Allergy Reactions Criticality Noted Date Comments Adhesive Tape Rash Low 05/20/2021 Spironolactone Hives 05/20/2021 Azithromycin Hives 05/20/2021 Medications butalbital-acet aminophen-caffe ine (Fioricet) 50-300-40 MG capsule capsule Take 1 capsule by mouth As Needed. 08/17/2019 Active lisdexamfetamin e (Vyvanse) 30 MG capsule Take 30 mg by mouth Daily 03/18/2021 Active omeprazole (priLOSEC) 40 MG capsule Take 40 mg by mouth As Needed. 01/16/2021 Active celecoxib (CeleBREX) 200 MG capsule Take 200 mg by mouth As Needed. 09/16/2020 Active ubrogepant (UBRELVY) 100 MG tablet Take 100 mg by mouth As Needed. 07/19/2020 Active ondansetron (Zofran) 4 MG tablet Take 1 tablet by mouth Every 8 (Eight) Hours As Needed for Nausea or Vomiting. 20 tablet 05/20/2021 3:32 PM EST 05/20/2021 Active HYDROcodone-anne-marie taminophen (NORCO) 5-325 MG per tablet Take 1-2 tablets by mouth Every 4 (Four) Hours As Needed (Pain). 40 tablet 05/20/2021 3:32 PM EST 05/20/2021 Active Active Problems No known active problems Social History Tobacco Use Types Packs/Day Years Used Date Smoking Tobacco: Never Alcohol Use Standard Drinks/Week Comments Defer 0 (1 standard drink = 0.6 oz pur e alcohol) Abuse Screen Answer Date Recorded Unsafe at Home or Work/School Not on file Feels Threatened by Someone? Not on file 02/2023 Does Anyone Keep You from Co ntacting Others or Doint Things Outside the Home? Not on file 03/26/2023 Physical Sign of Abuse Present Not on file 1 Housing Stability Answer Date Recorded Current Living Arrangements Not on file 02/2023 Potentially Unsafe Housing Conditions Not on deena e 03/26/2023 Family and Community Support Answer Chong e Recorded Help with Day-to-Day Activities Not on file 03/26/2023 Lonely or Isolated Not on file 03/26/2023 Employment Answer Date Recorded Do you want help finding or keeping work or a giselle b? Not on file 03/26/2023 Disabilities Answer Date Recorded Concentrating, Remembering, or Making Decisions Difficulty Not on file 03/26/2023 Doing Errands Independently Difficulty Not on fi le 03/26/2023 Education Answer Date Recorded Help with school or training? Not on file Preferred Language Not on file 03/26/2023 Comments No Sex and Gender Information Value Date Recorded Sex Assigned at Not on file Legal Sex Female 12:38 PM EDT Gender Identity Not on file Sexual Orientation Not on file Last Filed Vital Signs Vital Sign Reading Time Taken Comments Blood Pressure 94/64 05/20/2021 5:30 PM EST Pulse 89 05/20/2021 5:30 PM EST Temperature 36.3 C (97.4 F) 05/20/2021 5:30 PM EST Respiratory Rate 20 05/20/2021 5:30 PM EST Oxygen Saturation 97% 05/20/2021 5:30 PM EST Inhaled Oxygen Concentration - - Weight 75.8 kg (167 lb) 05/20/2021 12:13 PM EST Height 165.1 cm (5' 5 ) 05/20/2021 12:13 PM EST Body Mass Index 27.79 05/20/2021 12:13 PM EST Plan of Treatment Health Maintenance Due Date Last Done Comments ANNUAL PHYSICAL 1979 Annual Gynecologic Pelvic an d Breast Exam 1979 HEPATITIS C SCREENING 1979 TDAP/TD VACCINES (1 - Tdap) 08/19/1998 MAMMOGRAM 2019 COLOGUARD 08/19/2024 COLON CANCER SCREENING 5 YEA R SIGMOIDOSCOPY 08/19/2024 COLONOSCOPY 08/19/2024 COLORECTAL CANCER SCREENING 08/19/2024 CT COLONOGRAPHY 08/19/2024 FECAL OCCULT BLOOD TEST 08/19/2024 FIT Testing (1 year) 08/19/2024 INFLUENZA VACCINE 01/16/2025 Pneumococcal Vaccine 0-49 Aged Out No longer eligible based on patient's age to complete this topic Medical Devices Implanted Type Area Auto Bench Mechanic Device Identifier Shelf Expiration Date Model / Serial / Lot Kt Sut/Anch Fibertak Dx W/2 Yulisa/Pt Ndl - [id number] Implanted:Qty: 2 on 05/20/2021 by Brian Fuentes MD at [facility] Implant Right: Elbow [employer] 04/17/2026 [id number] / / [id number] [place] [address] Care Teams Doctor Of Dental Surgery Relationship Specialty Start Date End Date Provider, [place] [address] PCP - General 10/12/15
== END 2025-04-01 23:59 | disposition home or self-care (01) ==
LOC: RAD 12:57
PROVIDERS: Visit Provider Nurse Practitioner Obstetrics & Gynecology
DX: Z12.31 Encounter for screening mammogram for malignant neoplasm of breast (principal); N60.11 Diffuse cystic mastopathy of right breast; N60.02 Solitary cyst of left breast; R92.333 Mammographic heterogeneous density, bilateral breasts
CPT/HCPCS: 76641; 77063; 77067